=== PATIENT | female | born 1970 | race Caucasian/White ===

== ENCOUNTER 2024-11-25 09:45 | Emergency (ER) | payer BC, SELFPAY ==
--- OUTSIDE RECORDS SUMMARY | 2024-11-25 09:50 | XMS_ITS | Clinical Summary ---
Author Organization [facility] [address] Address [address] [place] [address] Care Team Providers Care Transmitter Operator Name Role Phone Anand Atkins MD Primary Care Provider [phone] Allergies No known active allergies Medications acidophilus-pect in, citrus 100 million cell-10 mg capsule Take by mouth Active multivitamin tabletIndication s:Vitamin Deficiency Prevention Take 1 tablet by mouth Active levothyroxine (SYNTHROID) 100 mcg tablet Take 1 tablet (100 mcg total) by mouth daily 90 tablet 4 10/16/2024 Active buPROPion SR (ZYBAN) 150 mg 12 hr tablet Take 1 tablet (150 mg total) by mouth 2 (two) times a day 180 tablet 3 10/16/2024 Active Active Problems Problem Noted Date Diagnosed Date Annual physical exam 10/16/2024 Assessment & Plan (10/16/2024 9:23 AM CDT): Focus of exam is preventative in nature. Reviewed immunizations, reviewed sun/skin cancer screening. See discussion of lung cancer screening. Reviewed colon/breast cancer screneing and will monitor response. BMI 37.0-37.9, adult 10/16/2024 Assessment & Plan (10/16/2024 9:23 AM CDT): Continue exercise regimen on multiday/regime and arnav follow respnose. Lipid screening 10/16/2024 Hypothyroidism 10/16/2024 Assessment & Plan (10/16/2024 9:23 AM CDT): Clinically euthyroid. Continue to follow tfts and will montior response. Colon cancer screening 10/16/2024 Assessment & Plan (10/16/2024 9:23 AM CDT): Gastroenterology referral placed and asymptomatic bleeding. Contusion of nose 07/29/2023 Nasal abrasion, initial encounter 07/29/2023 Encounter for screening colonoscopy 06/29/2020 Overview (06/29/2020): Added automatically from request for surgery [id number] Severe obesity (BMI 35.0-39.9) with comorbidity 06/05/2019 Assessment & Plan (10/16/2024 9:22 AM CDT): Reviewed impact of increaed bmi and target of 150min/week aerobic exericse. Healthy food choices. Atopic rhinitis 07/02/2013 Overview (07/21/2016): Allergic rhinitis Tobacco use 07/02/2013 Overview (07/21/2016): Tobacco use Encounters Date Type Department Care Team Description 10/16/2024 8:45 AM CDT Office Visit [facility] [address] [id number] Anand Atkins MD Colon cancer screening (Primary Dx); Hypothyroidism, unspecified type; Lipid screening; Severe obesity (BMI 35.0-39.9) with comorbidity (HCC); BMI 37.0-37.9, adult; Annual physical exam 09/12/2024 Orders Only [facility] [address] [id number] Anand Atkins MD from Last 3 Months Immunizations Immunization Administration Dates Next Due Influenza, Unspecified 10/06/2023(Deferr ed: Patient Refused),12/16/2022(Deferred: Patient Refused),08/10/2022(Deferred: Patient Refused),12/16/2021(Deferred: Patient Refused),04/17/2021(Deferred: Patient Refused),12/16/2020(Deferred: Patient Refused),06/05/2019(Deferred: Patient Refused),01/15/2019(Deferred: Patient Refused),12/16/2018(Deferred: Patient Refused),01/15/2018(Deferred: Patient Refused),01/02/2018(Deferred: Patient Refused),04/24/2017(Deferred: Patient Refused) ZOSTER Recombinant 11/16/2022,08/16/2022 Surgical History Surgery Date Site/Laterality Comments TONSILLECTOMY 04/17/1986 - 04/16/1987 Tonsillectomy OTHER SURGICAL HISTORY Dysfunctional uterine bleeding (DUB): endometrial ablation NOS TUBAL LIGATION Bilateral tubal ligation TONSILLECTOMY 05/18/1984 - 06/14/1984 CRANIECTOMY FOR CRANIOSYNOSTOSIS 1968 - 1968 HYSTERECTOMY 12/16/2018 - 01/14/2019 [facility] Medical History Medical History Date Comments Hx Other Medical soft spot close d early Hx Other Medical Dysfunctional u terine bleeding (DUB) Family History Medical History Relation Name Comments Diabetes Father kaiden Thyroid cancer Maternal cousin Thyroid disease Mother thomas Breast cancer Mother's Sister Cancer -sangita ast; Kidney disease Other 1 Family histor y of Renal disease; Arthritis Other 2 Family history of arthritis; Thyroid disease Sister solo Ovarian cancer Neg Hx Relation Name Status Comments Father kaiden Alive Maternal cousin Mother thomas Alive Mother's Sister Other 1 Other 2 Sister solo Alive Social History Tobacco Use Types Packs/Day Years Used Date Smoking Tobacco: Former Cigarettes Q uit: 01/10/2019 Smokeless Tobacco: Never Tobacco Cessation:Ready to Q uit: Yes; Counseling Given: Yes Comments:Smoking History Packs/day: 5 Cigarettes Alcohol Use Standard Drinks/Week Comments Yes 0 (1 standard drink = 0.6 oz pur e alcohol) socially PHQ-2 Answer Date Recorded PHQ-2 Total Score (If total score is 3 or more points, staff should administer the PHQ-9) 0 10/16/2024 Personal Safety Answer Date Recorded Have you ever been in or are you currently in a harmful physical or emotional relationship or is someone making you feel afraid or unsafe? 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 Gender Identity Not on file Sexual Orientation Not on file Obstetrics History Para Term AB IAB SAB Ectopic Multiple Livin g Live Births 0 0 0 0 0 0 0 0 0 0 0 Last Filed Vital Signs Vital Sign Reading Time Taken Comments Blood Pressure 126/68 10/16/2024 8:46 AM CDT Pulse 81 10/16/2024 8:46 AM CDT Temperature 36.7 C (98.1 F) 10/16/2024 8:46 AM CDT Respiratory Rate 18 10/16/2024 8:46 AM CDT Oxygen Saturation 97% 10/16/2024 8:46 AM CDT room air Inhaled Oxygen Concentration - - Weight 102.5 kg (226 lb) 10/16/2024 8:46 AM CDT Height 165.1 cm (5' 5) 10/16/2024 8:46 AM CDT Body Mass Index 37.61 10/16/2024 8:46 AM CDT Plan of Treatment Health Maintenance Due Date Last Done Comments Colon Cancer Screening-Colonoscopy 1968 Hepatitis C Screening 1968 DTaP/Tdap/Td Vaccine (1 - Tdap) 1979 Hepatitis B Screening 1986 Covid-19 Vaccine ( season) 2023 05/24/2021, 07/20/2020 Influenza Vaccine (#1) 2024 Breast Cancer Screening-Mammogram 01/09/2025 01/10/2024, 10/13/2021, 03/24/2020, Additional history exists Depression Screening 10/16/2025 10/16/2024, 10/06/2023, 08/10/2022, Additional history exists Regular Well Visit/Exam 18-64 10/16/2025 10/16/2024, 10/06/2023, 08/10/2022, Additional history exists Zoster Vaccine Completed 11/16/2022, 08/16/2022 Pneumococcal vaccine <65 Aged Out No longer eligible based on patient's age to complete this topic Procedures Procedure Name Priority Date/Time Associated Diagnosis Comments SCREENING MAMMOGRAM BILATERAL W FREEDOM Schedule Routine, Read Routine (OP Routine) 01/10/2024 7:30 AM CDT Encounter for screening mammogram for malignant neoplasm of breast from Last 3 Months or Most Recently Relevant to Health Maintenance Results * Screening Mammogram Bilateral W [place] (01/10/2024 7:30 AM CDT) Anatomical Region Laterality Modality Breast Bilateral Mammography 01/10/2024 8:25 AM CDT Impressions 01/10/2024 8:25 AM CDT There is no mammographic evidence of malignancy. A 1 year screening mammogram is recommended. BI-RADS: 1 - Negative. The patient has been or will be contacted. The patient will be entered into a reminder system with a target due date of 1 year for her next mammogram. Electronically signed by: Joey Leonard M.D. Narrative 01/10/2024 8:25 AM CDT EXAMINATION: SCREENING MAMMOGRAM BILATERAL W FREEDOM ORDERING HEALTHCARE PROVIDER: ANAND ATKINS HISTORY: Routine screening mammography. COMPARISON: 10/13/2022,03/24/2020, 11/02/2015, 10/09/2014 TECHNIQUE: CC and MLO views of the bilateral breasts were obtained with digital technique using breast tomosynthesis with C view. Computer aided detection was utilized. FINDINGS: DENSITY: The breasts are heterogeneously dense, which may obscure small masses. BREASTS: There are no suspicious masses, suspicious calcifications, or other suspicious findings in either breast. There has been no suspicious interval change. Anand Atkins MD IMG MAMMO PROCEDURES Nidia l Result from Last 3 Months or Most Recently Relevant to Health Maintenance Insurance [facility] ACCESS CHOICE ANTH ACCESS CHOICE Advance Directives For more information, please contact: [phone] * Full Code (Latest Code Status on File) Date Activated Date Inactivated Comments 01/10/2019 6:25 PM 01/12/2019 2:44 PM Care Teams Transmitter Operator Relationship Specialty Start Date End Date Anand Atkins MD [address] [place] [address] PCP - General 10/25/18
--- NOTE | 2024-11-25 09:55 | ED.WOUNDLAC ---
HPI - Wound/Laceration General Chief Complaint: Wound/Laceration Stated Complaint: Laceration to Finger Time Seen by Provider: 11/25/24 10:10 Source: patient and RN notes reviewed Mode of arrival: ambulatory Limitations: no limitations History of Present Illness HPI narrative: 54-year-old female presents with concern for laceration to the 5th digit of her right hand. She reports last night around 7:00 a.m. she cut the finger on a piece of metal. She denies decreased sensation, strength, range of motion of the digit. She is not up-to-date on her tetanus vaccination. Related Data Home Medications ?Medication ?Instructions ?Recorded ?Confirmed ?Last Taken ?Type bupropion HCl (smoking deter) 150 mg PO 11/25/24 Unknown History mg tablet,12 hr sustained-release(smoking deterrent) levothyroxine 100 mcg tablet mcg 11/25/24 Unknown History Allergies Allergy/AdvReac Type Severity Reaction Status Date / Time No Known Allergies Allergy Mild Verified 12/06/07 10:28 Review of Systems Review of Systems: CONSTITUTIONAL: Denies malaise, chills, sweats, or fever. SKIN: Reports laceration to the 5th digit of the right hand MUSCULOSKELETAL: Denies muscle skeletal pain NEUROLOGIC: Denies numbness, weakness All systems reviewed & are unremarkable except as noted in HPI and below PMFSH Family History Family History (Updated 11/13/15 @ 23:21 by DOCTOR UNKNOWN) Mother Family history of migraine headaches Asthma Family history of osteoarthritis Patient's mother is in good health Father Patient's father is in good health Sibling Patient's sister is in good health Patient's brother is in good health Grandparent Family history of alcoholism Family history of Alzheimer's disease Other Family history of malignant neoplasm of bone Family history of malignant neoplasm of breast Family history of primary malignant neoplasm of liver Social History Social History Alcohol intake: current Comments At time of signature, agree with nursing past medical, surgical, social and family history. There is no relevant family history pertinent to the presenting complaint Exam Narrative: GENERAL: Well-appearing, well-nourished, and in no acute distress. HEAD: Normocephalic EYES: PERRLA, conjunctivae clear NECK: Supple. CHEST: Speaks in full sentences. No respiratory distress. HEART: Regular rate and rhythm. Normal and equal peripheral pulses. EXTREMITIES: 5th digit of the right hand has normal strength and sensation. 5/5 strength with digit flexion, extension. Range of motion normal. No clubbing, cyanosis, or edema noted. Normal digital cascade with flexion of fingers, median, ulnar and radial nerve intact. Normal sensation of each side of finger. Good capillary refill and radial pulse. Distal capillary refill less than 3 seconds. SKIN: Warn, dry, intact, pink. No rash NEURO: Alert and oriented x3. PSYCH: Normal mood and affect Course Course Emergency Course: Patient is aware of diagnosis, understands and agrees to treatment plan. Anticipatory guidance given. Patient agrees to follow-up as directed and is aware of reasons to seek care at the emergency department. Portions of this record may have been created with voice recognition software Level of Care: Express Care Visit Vital Signs Vital signs: Reviewed. MDM - Wound/Laceration MDM Narrative Medical decision making narrative: Wound explored for foreign body and copious irrigation provided with no evidence of FB. Discussed the potential of retained foreign body with the patient and signs/symptoms that should prompt the patient to immediately go to the ED for reevaluation. The laceration was identified to be [XXX] cm in length and located at [XXX]. The laceration was cleansed with [XXX] and no debris was noted. Local anesthesia was obtained by injecting 1% lidocaine at the laceration site. The laceration was then irrigated with 500cc of high-pressure irrigation. The wound was explored and no foreign bodies were found. There was no evidence of tendon or nerve lacerations. The wound was closed with [ XXX suture type, number, and technique]. A sterile dressing was then applied and anticipatory guidance was provided. Tetanus prophylaxis [(was/was not)] given Differential Diagnosis Differential diagnosis: Likely laceration, abrasion and avulsion of skin Critical Care Time Critical Care Time Critical Care Time: No Discharge Plan Discharge Clinical Impression: Laceration Patient Disposition: Home Condition: Stable Instructions: Laceration (ED) Additional Instructions: Skin adhesive care: -adhesive works like a bandage; do not use antibiotic ointment as it can break down the adhesive -You can shower while the adhesive is on your skin, but do not take a bath or soak or scrub the area for 7-10 days. Dry your skin by patting it gently with a towel. -The adhesive will peel off on its own; usually by 5-10days. If after 10 days, you still have adhesive on you, you can use antibiotic ointment or petroleum jelly to get it off. After you heal, you should protect the scar from the sun. Use sunscreen on the area or wear clothes or a hat that covers the scar. Follow up with your PCP as needed If you have any worsening of symptoms, redness, swelling, fever, or drainage, or any other concerns please follow up with your PCP or go to the ED immediately. Patient Language: Telugu Prescriptions: No Action levothyroxine 100 mcg tablet bupropion HCl (smoking deter) 150 mg tablet extended release 12 hr PO Follow-up/Referrals: Harms,Anadn [place] M.D. [Primary Care Provider] - Time of Disposition: 10:31
[2024-11-25 10:01] VITALS: BP 137/101; PULSE 85; RESP 16; TEMP 37; O2SAT 97
[2024-11-25] MEDS: TETANUS,DIPHTHERIA,AC PERTUSSIS ADULT (0.5 ML) BOOSTRIX IM (10:42)
== END 2024-11-25 10:47 | disposition home or self-care (01) ==
LOC: EXPBETH 09:50
PROVIDERS: Emergency Provider Nurse Practitioner; PCP Family Medicine
DX: S61.216A Laceration without foreign body of right little finger without damage to nail, initial encounter (principal); W45.8XXA Other foreign body or object entering through skin, initial encounter; Z23 Encounter for immunization; E03.9 Hypothyroidism, unspecified
CPT/HCPCS: 12001; 90471; 90715; 99202; G0463